=== PATIENT | male | born 1940 | race Caucasian/White ===

== ENCOUNTER → 2017-08-31 09:55 | Outpatient (CLI) | payer MEDICARE, SELFPAY ==
[2017-08-31 10:24] LABS: Blood Urea Nitrogen 23 mg/dL (7-18); Creatinine,Serum 1.02 mg/dL (0.70-1.30); Estimated Glomerular Filt Rate 71 ml/min (>60); GFR (African American) 86 ML/MIN (>60)
--- NOTE | 2017-08-31 10:39 | CT_ITS ---
CT abdomen wo/w con CLINICAL INDICATION: Polycythemia, splenomegaly, ITS.REASON: SPLENAMEGALY,POLYCTHEMIA ORDERING PHYSICIAN: Timo Hancock MD PATIENT AGE: 77 years COMPARISON: None TECHNIQUE: Axial images obtained without and with contrast. Sagittal and coronal reformats. PROCEDURE: Oral Contrast: None IV Contrast: 75 mL's Isovue-370. FINDINGS: Lung base images show scattered areas of fibrosis with centrilobular and paraseptal emphysematous changes. There are scattered isodense densities within the liver measuring up to 9 mm in the left hepatic lobe and may be due to small hepatic cyst. There are scattered calcific densities also in the liver. There are gallstones. No ductal dilatation. Spleen is unremarkable. No evidence of splenomegaly. Adrenal glands have an unremarkable appearance. Pancreatic duct is slightly prominent in the region of the head of the pancreas. On image #37 of the unenhanced and 35 of post enhanced sequences there is a calcification in the region of the head of the pancreas. Could be a stone within the pancreatic duct or subjacent calcification from chronic pancreatitis. MRCP may be of further value if clinically warranted. There are bilateral renal cyst and nonobstructing bilateral renal calculi as stones measuring up to 4 mm in the lower pole on the right and 3 mm in the lower pole on the left. There are bilateral renal cysts measuring up to 5.4 cm in the upper pole on the right and 4.2 cm in the lower pole on the left. There are left parapelvic renal cysts which measure up to 2.7 cm. No hydronephrosis. Unremarkable appendix. No intestinal obstruction or free air. There is diverticulosis of the descending and sigmoid colon. No evidence of diverticulitis. A small umbilical hernia containing fat. There is mild thickening urinary bladder wall nonspecific. Prostate gland is slightly prominent at 4.6 cm. Degenerative changes lumbar spine. IMPRESSION: 1. No evidence of splenomegaly. Small hepatic cyst. 2. Cholelithiasis. 3. There is a small calcific density in the pancreatic head and one at the junction of the head and body could be due to chronic pancreatitis. The calcification in the pancreatic head however is associated with the accessory pancreatic duct and could be related to a small stone within the duct. There is minimal prominence of the pancreatic duct in the body the pancreas. 4. Bilateral nonobstructing renal calculi with bilateral renal cysts. 5. Diverticulosis of the colon with small umbilical hernia.
== END ==
PROVIDERS: Family Provider Internal Medicine Adolescent Medicine; PCP Internal Medicine Adolescent Medicine; Visit Provider Internal Medicine Adolescent Medicine
DX: R16.1 Splenomegaly, not elsewhere classified (principal); D75.1 Secondary polycythemia
CPT/HCPCS: 36415; 74170; 82565; 84520; Q9967

== ENCOUNTER 2017-11-15 15:33 | Observation (INO) ==
--- NOTE | 2017-11-15 16:25 | Consult Report ---
*Admission Date: 11/15/17 *Chief complaint: Abdominal pain *History of present illness: Patient is a pleasant 77-year-old quite talkative white male with history of polycythemia vera and history of coronary artery disease on Plavix. He states that he was in his usual state of health until he had gone to bed yesterday evening and developed upper abdominal pain. He describes it more of a "tenderness". This was in the epigastrium and bilateral subcostal area. He had some associated bloating. He had proceeded to drink some sweet tea and had very cold icy sensation upon doing so. This was followed by extremely dark black stool. Patient states that he ultimately did go to sleep in the [facility] and had presented to his primary care physician's office today. Given his history plan was made for admission for inpatient management and surgical consultation for possible endoscopy. Patient denies any prior known history of ulcers. He does state that he had a normal bowel movement this morning. He, however, still does have the upper abdominal "tenderness". Review of Systems - Constitutional Denies anorexia - Eyes Denies blind spots - ENT Denies abnormal hearing - *Cardiovascular Denies chest pain - *Respiratory Denies shortness of breath - *Gastrointestinal Reports abdominal pain, Reports bloating, Reports change in stools - *Genitourinary Denies difficulty urinating Meds Allergies Allergy/AdvReac Type Severity Reaction Status Date / Time No Known Allergies Allergy Unverified 07/13/17 15:01 Exam Vital signs and Labs for Last 24 Hours: Temp Pulse Resp BP Pulse Ox 97.9 F 84 18 99/56 97 11/15/17 16:13 11/15/17 16:13 11/15/17 16:13 11/15/17 16:13 11/15/17 16:13 I & O for Last 24 hours: Intake & Output 11/13/17 11/14/17 11/15/17 11/16/17 11:59 11:59 11:59 11:59 Weight 156 lb 7 oz - Constitutional no acute distress - *Routine Respiratory Exam Present: CTA bilaterally - *Routine Cardiovascular Exam Present: RRR - *Routine Abdominal Exam Present: soft. Absent: tenderness Assessment and Plan - Assessment and plan all Dx Assessment and Plan for all problems:: Etiology of symptoms are unclear. Given the history of epigastric pain and probable melanic stool I do feel that upper endoscopy would be reasonable. Patient seems to be quite stable at this time and therefore plan tentatively for upper endoscopy tomorrow morning. Likely would be rather hesitant to perform any biopsies given ongoing antiplatelet agents.
[2017-11-15 16:45] LABS: Basophils # 0.1 K/mm3 (0-0.2); Eosinophils # 0.3 K/mm3 (0.0-0.4); Eosinophils % 3.3 % (0.1-12.0); Hematocrit 48.7 % (42.0-52.0); Hemoglobin 15.5 g/dL (14.1-18.0); Lymphocytes # 0.9 K/mm3 (0.7-4.5); Lymphocytes % 12.2 K/mm3 (10-50); Mean Corpuscular HGB Conc 31.8 g/dL (31.8-35.4); Mean Corpuscular Hemoglobin 29.8 pg (27.0-31.2); Mean Corpuscular Volume 93.6 fl (80-94); Mean Platelet Volume 8.6 fl (7.4-10.4); Monocytes # 0.5 K/mm3 (0.1-1.0); Monocytes % 6.9 % (1.7-9.3); Neutrophils # 5.8 K/mm3 (1.8-7.8); Neutrophils % 76.7 % (37.0-80.0); Platelet Count 184 K/mm3 (142-424); White Blood Count 7.6 K/mm3 (4.8-10.8)
[2017-11-15 17:27] LABS: Alanine Aminotransferase 14 U/L (12-78); Albumin Level 3.5 gm/dL (3.4-5.0); Albumin/Globulin Ratio 1.2 (1.1-1.8); Alkaline Phosphatase 77 U/L (46-116); Anion Gap 11.1 mEq/L (5-15); Aspartate Amino Transferase 12 U/L (15-37); Bilirubin,Total 0.5 mg/dL (0.2-1.0); Blood Urea Nitrogen 18 mg/dL (7-18); Calcium 8.9 mg/dL (8.5-10.1); Carbon Dioxide 26 mmol/L (21.0-32.0); Chloride 107 mmol/L (98-107); Globulin 2.9 gm/dl (1.3-3.2); Glucose 88 mg/dL (74-106); Potassium 4.1 mmoL/L (3.5-5.1); Sodium 140 mmol/L (136-145); Total Protein,Serum 6.4 gm/dL (6.4-8.2)
--- NOTE | 2017-11-16 07:37 | Pharmacy Consult Notes ---
[facility] Pharmacy VTE Monitoring - Patient Demographics Admission date: 11/15/17 Report Date: 11/16/17 Time: 07:37 Allergies/Adverse Reactions: Patient Allergies No Known Allergies Allergy (Unverified 07/13/17 15:01) Height: 1.7 m Weight: 70.959 kg - VTE Risk Labs: VTE Related Lab Results Hgb 15.5 g/dL (14.1-18.0) 11/15/17 16:30 Hct 48.7 % (42.0-52.0) 11/15/17 16:30 Plt Count 184 K/mm3 (142-424) 11/15/17 16:30 BUN 18 mg/dL (7-18) 11/15/17 16:30 Creatinine 0.96 mg/dL (0.70-1.30) 11/15/17 16:30 Estimated Creat Clear 64 mL/min (0-300) 11/15/17 16:30 Was VTE Risk Assessment Performed: Yes VTE Score: 1 VTE Risk Level: Very Low Risk - Prophylaxis VTE Prophylaxis Ordered?: Yes Types of VTE Prophylaxis: TEDS Knee High Location of Applied Device: Bilateral Lower Extremeties
--- NOTE | 2017-11-16 07:46 | Progress Note ---
Internal Medicine - PN: Subj *Date: 11/16/17 *Time: 07:45 Interval history: No pain overnight, normal bowel movement. Exam Vital signs and Labs for Last 24 Hours: Temp Pulse Resp BP Pulse Ox 98.2 F 93 H 20 102/55 93 L 11/16/17 07:28 11/16/17 07:28 11/16/17 07:28 11/16/17 07:28 11/16/17 07:28 Laboratory Results - last 24 hr 11/15/17 16:30: WBC 7.6, RBC 5.20, Hgb 15.5, Hct 48.7, MCV 93.6, MCH 29.8, MCHC 31.8, RDW 13.0, Plt Count 184, MPV 8.6, Neut % (Auto) 76.7, Lymph % (Auto) 12.2 , [place] % (Auto) 6.9, Eos % (Auto) 3.3, Baso % (Auto) 1.0, Neut # (Auto) 5.8, Lymph # (Auto) 0.9, [place] # (Auto) 0.5, Eos # (Auto) 0.3, Baso # (Auto) 0.1 11/15/17 16:30: Sodium 140, Potassium 4.1, Chloride 107, Carbon Dioxide 26, Anion Gap 11.1, BUN 18, Creatinine 0.96, Estimated Creat Clear 64, Estimated GFR 76, Est GFR ( Amer) 92, Glucose 88, Calcium 8.9, Total Bilirubin 0.5 , AST 12 L, ALT 14, Alkaline Phosphatase 77, Troponin I < 0.02, Total Protein 6.4, Albumin 3.5, Globulin 2.9, Albumin/Globulin Ratio 1.2 11/15/17 18:50: Troponin I < 0.02 11/15/17 21:39: Troponin I < 0.02 I & O for Last 24 hours: Intake & Output 11/13/17 11/14/17 11/15/17 11/16/17 11:59 11:59 11:59 11:59 Intake Total 1433 / 1433 Output Total 1000 / 1000 Balance 433 / 433 Weight 156 lb 7 oz Narrative: Rate regular, abdomen soft, no tenderness, alert, pleasant, oriented Assessment and Plan (1) Abdominal pain Current visit: Yes Status: Acute Category: Medical Code(s): R10.9 - Unspecified abdominal pain (2) Melena Current visit: Yes Status: Acute Category: Medical Code(s): K92.1 - Melena EGD today. Anticipate discharge of normal findings
[2017-11-16 07:55] LABS: Anion Gap 10.8 mEq/L (5-15); Potassium 3.8 mmoL/L (3.5-5.1)
[2017-11-16 08:00] LABS: Basophils # 0.1 K/mm3 (0-0.2); Basophils % 0.9 % (0.1-2.0); Eosinophils # 0.2 K/mm3 (0.0-0.4); Eosinophils % 3.2 % (0.1-12.0); Hematocrit 45.3 % (42.0-52.0); Hemoglobin 14.5 g/dL (14.1-18.0); Lymphocytes # 0.8 K/mm3 (0.7-4.5); Lymphocytes % 13.8 K/mm3 (10-50); Mean Corpuscular Hemoglobin 29.9 pg (27.0-31.2); Mean Corpuscular Volume 93.4 fl (80-94); Mean Platelet Volume 8.9 fl (7.4-10.4); Monocytes # 0.5 K/mm3 (0.1-1.0); Monocytes % 8.4 % (1.7-9.3); Neutrophils # 4.4 K/mm3 (1.8-7.8); Neutrophils % 73.6 % (37.0-80.0); Platelet Count 153 K/mm3 (142-424); Red Blood Count 4.85 M/mm3 (4.60-6.20)
--- NOTE | 2017-11-16 09:15 | Progress Note ---
[facility] Anesthesia Checklist - Patient Identification Patient Identification: Arm Band - Structural Data Admitted From: Home Planned Operative Procedure/s: egd Consent for Planned Operative Procedure(s) Verified: Yes Verified Documents: Surgical Consent, History and Physical - NPO Status Verified Time NPO: 00:00 - Additional verifications Anesthesia Reactions: No - Airway Assessment C-Spine Mobility Assessed: Yes (mp2) TMJ Mobility Assessed: Yes Dentition: Good Dentition - Neurological Assessment Level of Consciousness: Awake, Alert - Anesthesia Plan Anesthesia Risk discussed: Yes Anesthesia Plan: Verified ASA Class: III Anesthesia Type: MAC [facility] Anesthesia HX I have reviewed the patient's past medical history: Yes Medical History: Reports:: Aneurysm (pt states hx 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 pt states no residual weanesses), Hepatitis (pt states hx Hepatitis (unsure of B or C) acquired from [place]>30 yrs ago), Hyperlipidemia, Hypertension Denies:: Cancer, Diabetes Mellitus Type 1, Diabetes Mellitus Type 2, MRSA Laterality Cases: Bilateral: Arthroscopy Shoulder Other Surgeries: Yes: CABG, Hernia Repair, Open Heart Surgery, Other Amputation: No *Family Hx:: Cancer, Heart Attack, Hyperlipidemia, Hypertension
--- NOTE | 2017-11-16 09:52 | Procedure Note ---
- Procedure: Date: 11/16/17 Procedure Performed:: Esophagogastroduodenoscopy Indications:: Patient is a 77-year-old white male. He states that in the evening of 11/14/17 he had developed some epigastric pain with some associated bloating. He states that he drank some sweet tea and had an extremely cold sensation. This was followed by quite a black stool. He did have a subsequent normal stool but after presenting to his primary care provider the following day he was admitted for inpatient management upper endoscopy. Patient does have a history of polycythemia. Plan was made for upper endoscopy following morning. Performing Provider:: Ronald Jacinto MD Referring Provider:: Timo Hancock MD Sedation:: Propofol Procedure:: Consent was obtained patient was taken to endoscopy procedure room. He was positioned in a lateral decubitus position. Adequate intravenous sedation was achieved with anesthesia titration of propofol. Olympus endoscope was inserted via the oropharynx and advanced through the esophagus. Esophagus appeared unremarkable. Stomach was cannulated and insufflated. Retroflexion revealed a small hiatal hernia. He had some diffuse moderate nonerosive gastritis. Within the second portion of the duodenum there were findings of appreciable erosive duodenitis. However there was a rather large quite deep ulcer which had some old hemorrhagic material but no obvious vessel or adherent clot. Endoscope was able to be advanced beyond this. Distal duodenum was unremarkable. Endoscope was withdrawn into the stomach once again. Stomach was desufflated and the endoscope was withdrawn. Findings:: Small sliding hiatal hernia Diffuse nonerosive gastritis Erosive duodenitis Deep ulceration in second portion of duodenum with hemorrhagic material but no adherent clot or obvious visible vessel Recommendations:: High-dose proton pump inhibitors. I will go ahead and give full liquid diet. Likely plan for continued observation till tomorrow morning. If stable will discharge on high-dose proton pump inhibitor. Plan for repeat upper endoscopy in about 6 weeks. Complications:: None Estimated blood obtained (mL): 0
[2017-11-17 07:51] LABS: Basophils % 0.7 % (0.1-2.0); Eosinophils # 0.2 K/mm3 (0.0-0.4); Eosinophils % 3.7 % (0.1-12.0); Hematocrit 44.6 % (42.0-52.0); Lymphocytes # 0.9 K/mm3 (0.7-4.5); Lymphocytes % 16.1 K/mm3 (10-50); Mean Corpuscular HGB Conc 31.4 g/dL (31.8-35.4); Mean Corpuscular Hemoglobin 29.8 pg (27.0-31.2); Mean Corpuscular Volume 94.8 fl (80-94); Mean Platelet Volume 8.7 fl (7.4-10.4); Monocytes # 0.4 K/mm3 (0.1-1.0); Neutrophils # 3.9 K/mm3 (1.8-7.8); Neutrophils % 71.5 % (37.0-80.0); Platelet Count 144 K/mm3 (142-424); Red Blood Count 4.71 M/mm3 (4.60-6.20); Red Cell Distribution Width 13.1 % (11.5-17.5); White Blood Count 5.4 K/mm3 (4.8-10.8)
--- NOTE | 2017-11-17 07:57 | Discharge Summary ---
General - General Admission date:: 11/15/17 Discharge date: 11/17/17 HPI HPI: Patient is a pleasant 77-year-old quite talkative white male with history of polycythemia and history of coronary artery disease on Plavix. He states that he was in his usual state of health until he had gone to bed yesterday evening and developed upper abdominal pain. He describes it more of a "tenderness". This was in the epigastrium and bilateral subcostal area. He had some associated bloating. He had proceeded to drink some sweet tea and had very cold icy sensation upon doing so. This was followed by extremely dark black stool. Patient states that he ultimately did go to sleep in the [facility] hours and had presented to his primary care physician's office today. Given his history plan was made for admission for inpatient management and surgical consultation for possible endoscopy. Patient denies any prior known history of ulcers. He does state that he had a normal bowel movement this morning. He, however, still does have the upper abdominal "tenderness". Hospital Course Hospital Course: Patient was admitted, hemoglobin was stable, no sign abnormalities were noted. Because of patient's significant history of GI distress and the melanotic stool he was taken for EGD yesterday morning which revealed a very deep duodenal ulcer with no active bleeding. High-dose PPI was recommended, cautious diet was reinstituted and patient did well. This morning patient is doing very nicely. Has had normal stools, no vomiting. No evidence of bleeding. Eating well. Exam is normalized. Patient will be discharged home with high-dose PPI twice daily and close follow- up with surgeon for repeat endoscopy. Objective Vital signs: Temp Pulse Resp BP Pulse Ox 98.5 F 77 20 139/52 94 L 11/17/17 07:47 11/17/17 07:47 11/17/17 07:47 11/17/17 07:47 11/17/17 07:47 Narrative: Alert, pleasant, oriented 3. Lungs have smokers rhonchi as previously, heart rate regular, abdomen without abnormal findings. No edema noted. Results Labs on day of discharge: Labs from last 24 hours 11/16/17 11/16/17 06:05 06:05 WBC 6.0 RBC 4.85 Hgb 14.5 Hct 45.3 MCV 93.4 MCH 29.9 MCHC 32.0 RDW 13.0 Plt Count 153 MPV 8.9 Neut % (Auto) 73.6 Lymph % (Auto) 13.8 [place] % (Auto) 8.4 Eos % (Auto) 3.2 Baso % (Auto) 0.9 Neut # (Auto) 4.4 Lymph # (Auto) 0.8 [place] # (Auto) 0.5 Eos # (Auto) 0.2 Baso # (Auto) 0.1 Sodium 144 Potassium 3.8 Chloride 108 H Carbon Dioxide 29 Anion Gap 10.8 BUN 12 D Creatinine 0.88 Estimated Creat Clear 64 Estimated GFR 84 Est GFR ( Amer) 102 Glucose 62 L D DS: Diagnosis - Discharge Diagnosis (1) Abdominal pain Status: Resolved (2) Melena Status: Resolved (3) Duodenal ulcer Status: Acute Discharge Plan - Patient Discharge Instructions ACTIVITY: Continue current activity DIET: continue same diet - Follow up Plan Follow up with: Ronald Jacinto MD [Staff Physician] - 2 weeks Disposition: Home, Self-[facility] Medications: Home Medications Medication Instructions Recorded Confirmed Type Ascorbic Acid [Vitamin C 500mg 2 tab PO DAILY 11/15/17 11/15/17 History tablet] Aspirin [Aspirin 81mg chewable 81 mg PO DAILY 11/15/17 11/15/17 History tab] Clopidogrel Bisulfate [Plavix] 75 mg PO DAILY 11/15/17 11/15/17 History Lisinopril [Lisinopril 5mg Tablet] 2.5 mg PO DAILY 11/15/17 11/16/17 History Metoprolol Tartrate [Lopressor 12.5 mg PO BID 11/15/17 11/16/17 History 25mg tablet] Simvastatin 80 mg PO DAILY 11/15/17 11/15/17 History Prescriptions/Medication Reconciliation: New Omeprazole [Omeprazole 20mg Tab] 20 mg PO BID #60 tab Continue Metoprolol Tartrate [Lopressor 25mg tablet] 12.5 mg PO BID Aspirin [Aspirin 81mg chewable tab] 81 mg PO DAILY Lisinopril [Lisinopril 5mg Tablet] 2.5 mg PO DAILY Simvastatin 80 mg PO DAILY Ascorbic Acid [Vitamin C 500mg tablet] 2 tab PO DAILY Discontinued Clopidogrel Bisulfate [Plavix] 75 mg PO DAILY
== END 2017-11-17 08:40 | disposition home or self-care (01) ==
LOC: 2ND
PROVIDERS: ADMIT Internal Medicine Adolescent Medicine; ATTEND Internal Medicine Adolescent Medicine
CPT/HCPCS: 36415; 71020; 71046; 80048; 80053; 84484; 85025; 93005; G0378

== ENCOUNTER 2018-08-04 14:00 | Outpatient (CLI) | payer MEDICARE, OTHER, SELFPAY ==
[2018-08-04 13:53] VITALS: BMI 25.5
[2018-08-04 14:17] LABS: Basophils % 0.5 % (0.1-2.0); Eosinophils # 0.4 K/mm3 (0.0-0.4); Eosinophils % 5.3 % (0.1-12.0); Hematocrit 52.8 % (42.0-52.0); Lymphocytes % 14.9 % (10-50); Mean Corpuscular HGB Conc 30.3 g/dL (31.8-35.4); Mean Corpuscular Hemoglobin 26.7 pg (27.0-31.2); Mean Corpuscular Volume 88.1 fl (80-94); Mean Platelet Volume 8.3 fl (7.4-10.4); Monocytes # 0.6 K/mm3 (0.1-1.0); Monocytes % 8.5 % (1.7-9.3); Neutrophils # 4.6 K/mm3 (1.8-7.8); Neutrophils % 70.8 % (37.0-80.0); Platelet Count 163 K/mm3 (142-424); Red Blood Count 5.99 M/mm3 (4.60-6.20); Red Cell Distribution Width 15.6 % (11.5-17.5); White Blood Count 6.6 K/mm3 (4.8-10.8)
[2018-08-04 14:25] LABS: Blood Urea Nitrogen 17 mg/dL (7-18); Creatinine Clearance Estimated 60 mL/min (50-200); Estimated Glomerular Filt Rate 65 ml/min (>60); GFR (African American) 79 ML/MIN (>60)
[2018-08-04 14:35] VITALS: RESP 20
[2018-08-04 14:50] VITALS: BMI 25.5
== END 2018-08-04 14:35 | disposition home or self-care (01) ==
PROVIDERS: Visit Provider Internal Medicine Medical Oncology
DX: D45 Polycythemia vera (principal)
CPT/HCPCS: 36415; 82565; 84520; 85025

== ENCOUNTER → 2018-08-09 13:38 | Outpatient (CLI) | payer MEDICARE, OTHER, SELFPAY ==
--- NOTE | 2018-08-09 14:01 | CT_ITS ---
CT chest w con HISTORY: Pulmonary nodules, smoker, tobacco use ITS.REASON: POLYCYTHEMIA ORDERING PHYSICIAN: Symone Cardenas MD PATIENT AGE: 78 years COMPARISON: None TECHNIQUE: Axial images obtained following the administration of 75 mL of Isovue 370 . Sagittal, and coronal reformatted images are also generated and reviewed. All CT scans at the facility use one or more dose reduction, viz: automated exposure control, ma/kV adjustment per patient size (including targeted exams where dose is matched to indication, i.e. head), or iterative reconstruction technique. FINDINGS: There is been prior median sternotomy with CABG. No evidence of aortic aneurysm or dissection. There is tortuosity of the descending thoracic aorta. There are coronary artery calcifications. No evidence of central pulmonary embolus. No mediastinal or hilar mass or adenopathy. There is a noncalcified 5 mm nodule in the right upper lobe centrally. No lobar consolidation or collapse. Calcified granuloma is present in the left upper lobe. No effusions or infiltrates. Centrilobular and paraseptal emphysema is noted. Pulmonary fibrotic changes are also present Upper abdominal images show cholelithiasis and bilateral renal cyst. There is an indeterminate isodensity in the left hepatic lobe at 9 mm. Central hepatic calcifications are also present and there is an additional 5 mm isodensity in the right upper lobe laterally. No acute bony findings. Destructive process IMPRESSION: 1. Centrilobular and paraseptal emphysema with pulmonary fibrotic changes 2. 5 mm right upper lobe nodule. Recommend 6-12 month follow-up 3. Cholelithiasis and other nonacute findings of the upper abdomen
== END ==
PROVIDERS: PCP Internal Medicine Adolescent Medicine; Visit Provider Internal Medicine Medical Oncology
DX: D75.1 Secondary polycythemia (principal)
CPT/HCPCS: 71260; Q9967

== ENCOUNTER 2018-09-08 14:58 | Outpatient (CLI) | payer MEDICARE, SELFPAY ==
[2018-09-08 15:50] LABS: Basophils # 0.1 K/mm3 (0-0.2); Basophils % 1.5 % (0.1-2.0); Eosinophils # 0.3 K/mm3 (0.0-0.4); Eosinophils % 4.6 % (0.1-12.0); Lymphocytes % 16.7 % (10-50); Mean Corpuscular HGB Conc 29.3 g/dL (31.8-35.4); Mean Corpuscular Hemoglobin 26.9 pg (27.0-31.2); Mean Corpuscular Volume 91.7 fl (80-94); Mean Platelet Volume 8.6 fl (7.4-10.4); Monocytes # 0.7 K/mm3 (0.1-1.0); Monocytes % 10.7 % (1.7-9.3); Neutrophils % 66.5 % (37.0-80.0); Platelet Count 134 K/mm3 (142-424); Red Blood Count 6.32 M/mm3 (4.60-6.20); Red Cell Distribution Width 15.2 % (11.5-17.5)
[2018-09-08 17:15] VITALS: BP 120/64; PULSE 60; RESP 18
== END 2018-09-08 17:15 | disposition home or self-care (01) ==
LOC: LAB 15:04 → INF 16:41
PROVIDERS: Visit Provider Internal Medicine Medical Oncology
DX: D45 Polycythemia vera (principal)
CPT/HCPCS: 36415; 85025

== ENCOUNTER 2018-10-07 13:00 | Outpatient (CLI) | payer MEDICARE, SELFPAY ==
[2018-10-07 13:03] VITALS: BMI 25.5
[2018-10-07 13:33] LABS: Basophils # 0.1 K/mm3 (0-0.2); Eosinophils # 0.4 K/mm3 (0.0-0.4); Eosinophils % 5.9 % (0.1-12.0); Hematocrit 57.1 % (42.0-52.0); Hemoglobin 17.4 g/dL (14.1-18.0); Lymphocytes % 15.9 % (10-50); Mean Corpuscular HGB Conc 30.4 g/dL (31.8-35.4); Mean Corpuscular Hemoglobin 27.4 pg (27.0-31.2); Mean Platelet Volume 8.7 fl (7.4-10.4); Monocytes # 0.5 K/mm3 (0.1-1.0); Monocytes % 8.4 % (1.7-9.3); Neutrophils # 4.3 K/mm3 (1.8-7.8); Neutrophils % 68.8 % (37.0-80.0); Platelet Count 130 K/mm3 (142-424); Red Blood Count 6.35 M/mm3 (4.60-6.20); Red Cell Distribution Width 14.4 % (11.5-17.5); White Blood Count 6.2 K/mm3 (4.8-10.8)
--- NOTE | 2018-10-07 16:29 | PC.NURSE ---
1323 - MARCUS FROM LAB GINA BLOOD FOR CBC AT THIS TIME.
== END 2018-10-07 15:30 | disposition home or self-care (01) ==
LOC: INF 13:01
PROVIDERS: Visit Provider Internal Medicine Medical Oncology
DX: R71.8 Other abnormality of red blood cells (principal)
CPT/HCPCS: 36415; 85025; 99195

== ENCOUNTER → 2018-11-04 13:07 | Outpatient (CLI) | payer MEDICARE, SELFPAY ==
[2018-11-04 13:19] LABS: Basophils # 0.1 K/mm3 (0-0.2); Basophils % 1.5 % (0.1-2.0); Eosinophils # 0.4 K/mm3 (0.0-0.4); Eosinophils % 5.7 % (0.1-12.0); Hematocrit 53.5 % (42.0-52.0); Hemoglobin 16.7 g/dL (14.1-18.0); Lymphocytes # 1.1 K/mm3 (0.7-4.5); Lymphocytes % 17.1 % (10-50); Mean Corpuscular HGB Conc 31.2 g/dL (31.8-35.4); Mean Corpuscular Hemoglobin 27.6 pg (27.0-31.2); Mean Corpuscular Volume 88.7 fl (80-94); Mean Platelet Volume 8.7 fl (7.4-10.4); Monocytes # 0.6 K/mm3 (0.1-1.0); Monocytes % 8.9 % (1.7-9.3); Neutrophils # 4.1 K/mm3 (1.8-7.8); Neutrophils % 66.9 % (37.0-80.0); Platelet Count 175 K/mm3 (142-424); Red Blood Count 6.03 M/mm3 (4.60-6.20); Red Cell Distribution Width 13.9 % (11.5-17.5); White Blood Count 6.2 K/mm3 (4.8-10.8)
== END ==
PROVIDERS: Visit Provider Internal Medicine Medical Oncology
DX: D45 Polycythemia vera (principal)
CPT/HCPCS: 36415; 85025

== ENCOUNTER 2018-12-08 15:14 | Outpatient (CLI) | payer MEDICARE, SELFPAY ==
[2018-12-08 15:30] LABS: Basophils # 0.1 K/mm3 (0-0.2); Basophils % 1.2 % (0.1-2.0); Eosinophils # 0.3 K/mm3 (0.0-0.4); Eosinophils % 4.9 % (0.1-12.0); Hematocrit 55.9 % (42.0-52.0); Hemoglobin 17.3 g/dL (14.1-18.0); Lymphocytes # 1.3 K/mm3 (0.7-4.5); Lymphocytes % 19.7 % (10-50); Mean Corpuscular HGB Conc 30.9 g/dL (31.8-35.4); Mean Corpuscular Hemoglobin 26.9 pg (27.0-31.2); Mean Corpuscular Volume 86.9 fl (80-94); Mean Platelet Volume 8.2 fl (7.4-10.4); Monocytes # 0.5 K/mm3 (0.1-1.0); Monocytes % 8.1 % (1.7-9.3); Neutrophils # 4.2 K/mm3 (1.8-7.8); Neutrophils % 66.1 % (37.0-80.0); Platelet Count 171 K/mm3 (142-424); Red Blood Count 6.43 M/mm3 (4.60-6.20); Red Cell Distribution Width 13.6 % (11.5-17.5); White Blood Count 6.4 K/mm3 (4.8-10.8)
== END 2018-12-08 16:35 | disposition home or self-care (01) ==
LOC: LAB 15:16 → INF 16:00
PROVIDERS: Visit Provider Internal Medicine Medical Oncology
DX: D75.1 Secondary polycythemia (principal)
CPT/HCPCS: 36415; 85025; 99195

== ENCOUNTER → 2019-06-29 12:24 | Outpatient (CLI) | payer MEDICARE, SELFPAY ==
--- NOTE | 2019-06-29 12:29 | CT_ITS ---
PROCEDURE: CT ABDOMEN PELVIS WO CON CLINICAL INDICATION: HEMATURIA COMPARISON: ABDWW CT abdomen wo/w con from 08/31/2017 TECHNIQUE: Axial images obtained with sagittal and coronal reformats. All CT scans at the facility use one or more dose reduction, viz: automated exposure control, ma/kV adjustment per patient size (including targeted exams where dose is matched to indication, i.e. head), or iterative reconstruction technique. FINDINGS: LOWER THORAX: Atelectatic/fibrotic changes are present in the lung bases. Artifact present pacemaker wires. There are scattered hypodensities within the liver which are too small to categorize and may be due to small cysts. Dystrophic calcifications are present in the central aspect of the liver. Multiple gallstones are present within the contracted gallbladder. The spleen and adrenal glands have an unremarkable appearance. There are few punctate calcifications in the pancreas nonspecific and not significantly changed. There are bilateral renal cysts. On the right there is a cyst in the upper pole which measures up to 5 cm with some minimal calcification along the superior margin adjacent to the liver and could even be calcification within the liver itself. There are other smaller cyst on the right and there is a 9 mm irregular stone in the lower pole of the right kidney. No ureteral calculus evident. On the left there is a 4.7 cm cyst in the upper pole. Other smaller cysts are present. There are few scattered left renal calculi measuring up to 5 mm in the lower pole, 3 mm in the mid polar region. No ureteral calculus evident. No hydronephrosis. There are parapelvic renal cysts on the left. There is a small umbilical hernia which contains fat. No evidence of appendicitis or diverticulitis. There is diverticulosis of the sigmoid colon. Increased soft tissue density is present in the left inguinal region and may be due to prior inguinal hernia repair. There is mild thickening of the urinary bladder with nondistention. IMPRESSION: 1. Bilateral nephrolithiasis and bilateral renal cysts. No hydronephrosis. No ureteral calculus. 2. Cholelithiasis. 3. There are scattered hypodensities of the liver which are nonspecific and too small to categorize as well as some dystrophic calcification of the liver. These findings are not significantly changed 4. Other nonacute findings as described above. Dictated by: Que Pruitt MD 06/30/2019 05:38 Electronically signed by Que Pruitt MD in [place] 06/30/2019 10:38
== END ==
PROVIDERS: PCP Internal Medicine Adolescent Medicine; Visit Provider Internal Medicine Adolescent Medicine
DX: R31.9 Hematuria, unspecified (principal)
CPT/HCPCS: 74176

== ENCOUNTER → 2019-06-30 13:06 | Outpatient (CLI) | payer MEDICARE, SELFPAY | PROVIDERS: Visit Provider Urology | DX: R31.9 Hematuria, unspecified (principal); N39.0 Urinary tract infection, site not specified | CPT/HCPCS: 87086; 87088; 87186 ==

== ENCOUNTER 2020-03-27 09:44 | Emergency (ER) | payer MEDICARE, OTHER, SELFPAY ==
[2020-03-27] VITALS (20 sets, daily range): BP systolic 82–109; BP diastolic 46–75; PULSE 66–126; RESP 21–28; TEMP 36.7–39.2; O2SAT 87–96; BMI 26.9
--- NOTE | 2020-03-27 09:48 | [facility].EDGENADL ---
ED Disposition Clinical Impression: Elevated troponin, Septic shock CAP (community acquired pneumonia) Qualifiers: Laterality: right Lung location: lower lobe of lung Qualified Code(s): J18.9 - Pneumonia, unspecified organism Respiratory failure with hypoxia Qualifiers: Chronicity: acute Qualified Code(s): J96.01 - Acute respiratory failure with hypoxia UTI (urinary tract infection) Qualifiers: Urinary tract infection type: site unspecified Hematuria presence: with hematuria Qualified Code(s): N39.0 - Urinary tract infection, site not specified Disposition: Xfer Short-Term Hosp Condition on Discharge: Serious - Critical Care Critical Care Time: Yes Attestation: On , the high probability of a clinically significant, sudden or life threatening deterioration of the following system(s) required my full and direct attention, intervention and personal management. The time I documented below is in addition to time spent performing reported procedures but includes the following listed in this critical care notation. Total Critical Care Time: 35 Vital system(s) involved:: Respiratory Failure, Shock (Septic) My critical care processes included: Assessment & monitoring of V/S, Initial and Re-exams, Data Review/Interpretation, Coordinating Care, Medication Orders and management, Documentation Medical Decision Making - Medical Records Medical records reviewed: Yes: I reviewed the patient's medical records. - [place]aden Inquiry Pt receiving controlled substance: No Vital Signs: 03/27/20 09:44 03/27/20 10:00 03/27/20 10:23 Temperature 100.1 F H Temperature Source Oral Pulse Rate Pulse Rate [Right Radial] 66 125 H 119 H Respiratory Rate 28 H Blood Pressure Blood Pressure [Right Arm] 104/46 L 101/58 L 109/48 L Blood Pressure Mean [Right Arm] 65 72 68 Blood Pressure Source Blood Pressure Source [Right Arm] Automatic Cuff Automatic Cuff Blood Pressure Position Blood Pressure Position [Right Arm] Sitting Sitting 02 Sat by Pulse Oximetry 87 L 90 L 90 L Oxygen Delivery Method Room Air Nasal Cannula Nasal Cannula Oxygen Flow Rate (LPM) 4 4 03/27/20 10:59 03/27/20 11:41 03/27/20 11:55 Temperature Temperature Source Pulse Rate Pulse Rate [Right Radial] 126 H 125 H 120 H Respiratory Rate Blood Pressure Blood Pressure [Right Arm] 103/49 L 95/54 L 97/54 L Blood Pressure Mean [Right Arm] 67 67 68 Blood Pressure Source Blood Pressure Source [Right Arm] Automatic Cuff Automatic Cuff Automatic Cuff Blood Pressure Position Blood Pressure Position [Right Arm] Sitting Sitting Sitting 02 Sat by Pulse Oximetry 92 L 91 L 92 L Oxygen Delivery Method Nasal Cannula Nasal Cannula Nasal Cannula Oxygen Flow Rate (LPM) 4 4 4 03/27/20 12:02 03/27/20 12:33 03/27/20 12:47 Temperature 102.5 F H Temperature Source Oral Pulse Rate Pulse Rate [Right Radial] 120 H 119 H Respiratory Rate Blood Pressure Blood Pressure [Right Arm] 94/66 L 95/62 L Blood Pressure Mean [Right Arm] 75 73 Blood Pressure Source Blood Pressure Source [Right Arm] Automatic Cuff Automatic Cuff Blood Pressure Position Blood Pressure Position [Right Arm] Sitting Sitting 02 Sat by Pulse Oximetry 92 L 91 L Oxygen Delivery Method Nasal Cannula Room Air Oxygen Flow Rate (LPM) 2 03/27/20 13:26 03/27/20 13:30 03/27/20 14:10 Temperature 98.6 F Temperature Source Oral Pulse Rate Pulse Rate [Right Radial] 116 H 107 H Respiratory Rate Blood Pressure Blood Pressure [Right Arm] 82/48 L 97/75 L 93/58 L Blood Pressure Mean [Right Arm] 59 82 69 Blood Pressure Source Blood Pressure Source [Right Arm] Automatic Cuff Automatic Cuff Automatic Cuff Blood Pressure Position Blood Pressure Position [Right Arm] Sitting Sitting 02 Sat by Pulse Oximetry 92 L 92 L Oxygen Delivery Method Nasal Cannula Nasal Cannula Oxygen Flow Rate (LPM) 4 4 03/27/20 14:52 03/27/20 14:59 03/27/20 15:25 [place]
--- NOTE | 2020-03-27 09:49 | XR_ITS ---
PROCEDURE: XR CHEST PORTABLE CLINICAL HISTORY: shortness of breath COMPARISON: CR CXR2 CHEST-AP VIEW ONLY from 07/25/2016 CR CXR2V XR chest 2V from 11/15/[address] chest w con from 08/09/2018 CR XR CHEST 2V from 05/13/2019 FINDINGS: Cardiomegaly without pulmonary venous congestion. There has been a prior CABG. There is a biventricular pacemaker with right atrial lead. There is chronic interstitial changes of the lungs with increased density of the right lower lobe which may be due to some underlying pneumonia. There may be trace bilateral effusions. Postsurgical changes are present in the shoulders. There is fracture of the superior most median sternotomy wire. IMPRESSION: Cardiomegaly with chronic changes with suspected right-sided pneumonia and trace bilateral effusions Dictated by: Que Pruitt MD 03/27/2020 10:24 Que Pruitt MD in [place] 03/27/2020 10:24
--- NOTE | 2020-03-27 09:51 | ECG_ITS ---
APPROVED REPORT Exam: Resting ECG HR:124 bpm ECG Measurements Heart Rate 124 AXES QRSd 150 QRS 210 QT 372 T 25 QTc 534 <Conclusion> Demand pacemaker, interpretation is based on intrinsic rhythm Undetermined rhythm Right bundle branch block, plus right ventricular hypertrophy Possible Lateral infarct, age undetermined Inferior infarct, age undetermined Abnormal ECG Electronically signed by : Timo Hancock, 03/29/2020 06:38:24
--- NOTE | 2020-03-27 10:05 | PC.NURSE ---
RT at bedside
[2020-03-27 10:08] LABS: Basophils % 0.2 % (0.1-2.0); Eosinophils # 0.1 K/mm3 (0.0-0.4); Eosinophils % 0.8 % (0.1-12.0); Hematocrit 51.4 % (42.0-52.0); Hemoglobin 15.9 g/dL (14.1-18.0); Lymphocytes # 0.3 K/mm3 (0.7-4.5); Lymphocytes % 1.8 % (10-50); Mean Corpuscular HGB Conc 30.9 g/dL (31.8-35.4); Mean Corpuscular Hemoglobin 28.2 pg (27.0-31.2); Mean Corpuscular Volume 91.3 fl (80-94); Mean Platelet Volume 9.5 fl (7.4-10.4); Monocytes # 0.8 K/mm3 (0.1-1.0); Monocytes % 4.5 % (1.7-9.3); Neutrophils # 16.6 K/mm3 (1.8-7.8); Neutrophils % 92.7 % (37.0-80.0); Platelet Count 110 K/mm3 (142-424); Red Blood Count 5.63 M/mm3 (4.60-6.20); Red Cell Distribution Width 14.9 % (11.5-17.5); White Blood Count 17.9 K/mm3 (4.8-10.8)
--- NOTE | 2020-03-27 10:09 | PC.NURSE ---
Rad at bedside
[2020-03-27 10:10] LABS: Microscopic, Urine URINE MICROSCOPIC (MICROSCOPIC)
[2020-03-27 10:12] LABS: Chloride 105 mmol/L (98-107); Sodium 141 mmol/L (136-145)
[2020-03-27 10:13] LABS: Appearance,Urine CLOUDY (Clear); Blood, Urine 3+ (Negative); Color,Urine AMBER (Yellow); Glucose,Urine (UA) Negative (Negative); Ketones,Urine TRACE (Negative); Leukocyte Esterase,Urine Negative (Negative); Nitrate,Urine POSITIVE (Negative); Protein,Urine 3+ (Negative); Specific Gravity, Urine 1.025 (1.005-1.030)
[2020-03-27 10:14] LABS: Blood Urea Nitrogen 27 mg/dl (9-20); Creatinine Clearance Estimated 37 mL/min (50-200); Estimated Glomerular Filt Rate 37 ml/min (>60); GFR (African American) 44 ML/MIN (>60)
[2020-03-27 10:15] LABS: Alanine Aminotransferase 35 U/L (12-78); Albumin Level 3.6 g/dl (3.5-5.0); Albumin/Globulin Ratio 1.4 (1.1-1.8); Alkaline Phosphatase 60 U/L (38-126); Aspartate Amino Transferase 54 U/L (17-59); Bilirubin,Total 2.3 mg/dl (0.2-1.3); Calcium 8.7 mg/dl (8.4-10.2); Carbon Dioxide 21 mmol/L (22.0-30.0); Globulin 2.5 g/dL (1.3-3.2); Glucose 128 mg/dl (74-100); Total Protein,Serum 6.1 g/dl (6.3-8.2)
[2020-03-27 10:17] LABS: Bilirubin,Urine Negative (Negative)
[2020-03-27 10:18] LABS: Lactic Acid 5.6 mmol/L (0.7-2.1); MANUAL DIFFERENTIAL MANUAL DIFFERENTIAL (MANUAL DIFF)
[2020-03-27 10:23] LABS: Amorphous Sediment,Urine Trace /lpf; Bacteria,Urine 4+ /lpf; Hyaline Casts,Urine Occasional #/lpf (0); WBC,Urine 20-50 #/hpf (0-3)
[2020-03-27 10:30] LABS: Coronavirus 19 IgG Antibody Negative (Negative); Coronavirus 19 IgM Antibody Negative (Negative)
[2020-03-27 10:32] LABS: Troponin I 8.71 ng/ml (0.00-0.034)
--- NOTE | 2020-03-27 10:32 | PC.NURSE ---
Critical lab values were called to Opal Crews RN
[2020-03-27 10:33] LABS: ABG HCO3 21.1 mmhg (22.0-26.0); ABG Oxygen Saturation 90 % (90-100); ABG PH 7.39 mmol/L (7.35-7.45); ABG PO2 55.7 mmhg (80-100); ABG TCO2 22.2 mmhg (23-27)
[2020-03-27 10:34] LABS: Lymphocytes % 4 % (10-50); Monocytes % 2 % (2-9); Neutrophils % 86 % (42-76); Total Cells Counted 100
[2020-03-27 10:36] LABS: Hypochromasia 1+; Platelet Estimate Slight Decrease
--- NOTE | 2020-03-27 10:36 | PC.NURSE ---
critical troponin reported to dr dempsey. awaiting further orders.
[2020-03-27 10:38] LABS: Allen's Test ACCEPTABLE; Oxygen 4LPM %; Source R RADIAL
[2020-03-27 10:41] LABS: NT Pro Brain Natriuretic Pep. 57100 pg/mL (0-450)
--- NOTE | 2020-03-27 10:49 | PC.NURSE ---
spoke with dr dempsey concerning pt respiratory status, increased bnp and risk for pulmonary edema accompanied with sepsis fluid bolus infusion. dr dempsey states to continue fluid bolus and to monitor closely for pulmonary edema and respiratory distress. pt tachypneic at this time but maintains spo2 and has no further signs of distress thus far.
--- NOTE | 2020-03-27 10:51 | PC.NURSE ---
Dr Wood speaking with Dr Hancock
--- NOTE | 2020-03-27 12:12 | PC.NURSE ---
Called [place] and spoke with Eloisa Singh who is a supervisor transferring and boxing, she faxed the declination of transfer papers to me. Pt's signed them on his behalf and they are being [facility] to [facility] at this time.
--- NOTE | 2020-03-27 13:30 | CA_ITS ---
APPROVED REPORT EXAM: Comprehensive 2D, Doppler, and color-flow Echocardiogram 411 Directory Assistance Operator: Stefanie Stephens, RT(R) Ht: 5 ft 6 in Wt: 167lbs BSA: 1.85 BP: 109/48 mmHg Indications: elevated troponins, pneumonia, septic shock, smoker, edema, HTN, SOB, hyperlipidemia, CAD, CVA, GERD, hepatitis, pacemaker, CABG, stents 2D Dimensions LVOT 1.68 cm (M/F) 1.5-2.5 M-Mode Dimensions LVDd 6.27 cm (3.5-5.7) LVDs 5.02 cm (3.5-5.7) IVSd 1.17 cm (0.6-1.1) PWd 0.84 cm (0.6-1.1) EF (Teich) 40.10% FS 19.90% EDV (Teich) 199.00 mL ESV (Teich) 119.30 mL LV Diastology E/A Ratio 2.18 Mitral Valve MV A Velocity 48.00 (40-130 cm/s) Left Ventricle Left atrium is moderately enlarged, left ventricle is mildly dilated, there is reduced left ventricular systolic function, visually estimated ejection fraction approximately 30%, there is marked hypokinesis involving the inferior, inferior basal wall, there is abnormal septal motion. Diastolic parameters are inconclusive. Right Ventricle Right atrium and right ventricular normal size and contractility, there is an AICD lead seen in the right ventricle. Aortic Valve Aortic valve is thickened and calcified leaflet continue to display good mobility, there is no aortic stenosis or aortic insufficiency. Mitral Valve Mitral valve leaflets are minimally thickened, there is no mitral stenosis, there is moderate to severe mitral regurgitation. Tricuspid Valve Tricuspid valve is grossly normal, there is moderate tricuspid regurgitation. Tricuspid regurgitation jet velocity is inadequate for calculation of the right ventricular systolic pressure. Pulmonic Valve Pulmonic valve is poorly visualized. Great Vessels Aortic root is normal size. Pericardium No significant pericardial effusion noted. Conclusion 1. Moderately enlarged left atrium, mildly dilated left ventricle, visually estimated ejection fraction 30% with segmental wall motion abnormality described above, diastolic parameters are inconclusive. 2. Moderate to severe mitral and moderate tricuspid regurgitation. 3. No significant pericardial effusion noted. Electronically signed by : Angus Hardy, 03/28/2020 15:11:52
--- NOTE | 2020-03-27 13:39 | PC.NURSE ---
notified dr dempsey of patient declining status, tachypnea with rate of 30-32 per minute, sao2 90% on [id number], and sbp of 83. dr dempsey consults with dr franks at this time. new orders received. see sep. will monitor closely.
--- NOTE | 2020-03-27 13:50 | PC.NURSE ---
spoke with [facility] concerning possible need for higher level of care do to patient declining status. me to check on [facility] beds and will return call.
[2020-03-27 14:02] LABS: Reflex Lactic Add Lactic Reflex
--- NOTE | 2020-03-27 14:16 | PC.NURSE ---
dr dempsey consulting with dr franks once again concerning echocardiagram findings. [facility]. pt tolerating levophed gtt well. see sep. bp 95/61, hr 109. continue to monitor closely.
--- NOTE | 2020-03-27 14:22 | PC.NURSE ---
jarrett hurtado speaking with [facility] at this time.
[2020-03-27 14:27] LABS: Troponin I 8.79 ng/ml (0.00-0.034)
--- NOTE | 2020-03-27 14:27 | PC.NURSE ---
Critical troponin called and MD aware
--- NOTE | 2020-03-27 14:35 | PC.NURSE ---
dr dempsey [facility]ults with [facility] and [facility] bed placement pending covid rapid results per [facility] protocol. attempted to receive ok to collect swab from bhavani with infection control and unable to get in contact with her. shalonda, melt house supervisor gives consent to collect and run test.
--- NOTE | 2020-03-27 14:53 | PC.NURSE ---
Lab at bedside collecting covid test
[2020-03-27 15:04] LABS: Lactic Acid Follow Up (RFLX 1) 1.9 mmol/L (0.7-2.1)
--- NOTE | 2020-03-27 16:32 | PC.NURSE ---
Per Denisa in lab pt's covid swab still has approx 57 minutes left to run.
[2020-03-27 16:45] LABS: Troponin I 8.63 ng/ml (0.00-0.034)
--- NOTE | 2020-03-27 16:45 | PC.NURSE ---
3rd critical troponin reported to dr dempsey.
--- NOTE | 2020-03-27 18:09 | PC.NURSE ---
Report called to [facility] at [place]
== END 2020-03-27 19:10 | disposition short-term general hospital (02) ==
LOC: ER 10:06 → 2ND 12:44
PROVIDERS: Emergency Provider Emergency Medicine; PCP Internal Medicine Adolescent Medicine
DX: J18.9 Pneumonia, unspecified organism (principal); J96.01 Acute respiratory failure with hypoxia; N39.0 Urinary tract infection, site not specified; Z03.818 Encounter for observation for suspected exposure to other biological agents ruled out; Z95.0 Presence of cardiac pacemaker; Z95.1 Presence of aortocoronary bypass graft; I25.10 Atherosclerotic heart disease of native coronary artery without angina pectoris; I10 Essential (primary) hypertension; E78.5 Hyperlipidemia, unspecified; K21.9 Gastro-esophageal reflux disease without esophagitis; F17.210 Nicotine dependence, cigarettes, uncomplicated
CPT/HCPCS: 36415; 71045; 80053; 81001; 82803; 83605; 83880; 84484; 85007; 85025; 86328; 87040; 87077; 87086; 87186; 93005; 93306; 96365; 96366; 96367; 96375; 99285; J0456; U0003

== ENCOUNTER → 2020-04-18 12:17 | Outpatient (CLI) | payer MEDICARE, OTHER, SELFPAY ==
[2020-04-18 13:11] LABS: Basophils # 0.1 K/mm3 (0-0.2); Basophils % 1.6 % (0.1-2.0); Eosinophils # 0.1 K/mm3 (0.0-0.4); Eosinophils % 2.6 % (0.1-12.0); Hematocrit 46.4 % (42.0-52.0); Hemoglobin 13.6 g/dL (14.1-18.0); Lymphocytes # 0.9 K/mm3 (0.7-4.5); Mean Corpuscular HGB Conc 29.4 g/dL (31.8-35.4); Mean Corpuscular Hemoglobin 27.9 pg (27.0-31.2); Mean Corpuscular Volume 95.1 fl (80-94); Mean Platelet Volume 10.5 fl (7.4-10.4); Monocytes # 0.4 K/mm3 (0.1-1.0); Monocytes % 8.8 % (1.7-9.3); Neutrophils # 3.1 K/mm3 (1.8-7.8); Platelet Count 83 K/mm3 (142-424); Red Blood Count 4.87 M/mm3 (4.60-6.20); Red Cell Distribution Width 15.7 % (11.5-17.5); White Blood Count 4.6 K/mm3 (4.8-10.8)
[2020-04-18 14:25] LABS: Alanine Aminotransferase 8 U/L (12-78); Albumin Level 3.3 g/dl (3.5-5.0); Albumin/Globulin Ratio 1.4 (1.1-1.8); Alkaline Phosphatase 85 U/L (38-126); Anion Gap 6.9 mEq/L (5-15); Aspartate Amino Transferase 23 U/L (17-59); Bilirubin,Total 0.9 mg/dl (0.2-1.3); Blood Urea Nitrogen 34 mg/dl (9-20); Calcium 9.1 mg/dl (8.4-10.2); Carbon Dioxide 38 mmol/L (22.0-30.0); Chloride 103 mmol/L (98-107); Estimated Glomerular Filt Rate 72 ml/min (>60); GFR (African American) 88 ML/MIN (>60); Globulin 2.3 g/dL (1.3-3.2); Glucose 100 mg/dl (74-100); Magnesium 1.7 mg/dl (1.6-2.3); Potassium 3.9 mmoL/L (3.5-5.1); Sodium 144 mmol/L (136-145); Total Protein,Serum 5.6 g/dl (6.3-8.2)
== END ==
PROVIDERS: Visit Provider Internal Medicine Adolescent Medicine
DX: R60.1 Generalized edema (principal)
CPT/HCPCS: 36415; 80053; 83735; 84443; 85025

== ENCOUNTER 2020-04-30 18:42 | Emergency (ER) | payer MEDICARE, OTHER, SELFPAY ==
[2020-04-30 18:43] VITALS: BP 104/64; PULSE 85; RESP 19; TEMP 36.3; O2SAT 100; BMI 25.3
--- NOTE | 2020-04-30 19:09 | CT_ITS ---
PROCEDURE: CT HEAD/BRAIN WO CON CLINICAL INDICATION: pain Head injury with headache/pain, contusion, abrasion or hematoma COMPARISON: CT HDWO CT HEAD W/O CONTRAST from 07/25/2016 TECHNIQUE: Axial images obtained. All CT scans at the facility use one or more dose reduction, viz: automated exposure control, ma/kV adjustment per patient size (including targeted exams where dose is matched to indication, i.e. head), or iterative reconstruction technique. FINDINGS: No midline shift, mass effect, intracranial hemorrhage, hydrocephalus, or extra-axial fluid collection is evident. Artifact is present from the right sided aneurysm coil in the parasellar region. There are encephalomalacia changes in the left frontal parietal junction. There is generalized atrophy with hypoattenuation of the periventricular white matter consistent with microangiopathic changes. The calvarium has an unremarkable appearance. Chronic partial opacification of the right mastoid air cells. No sinus air-fluid level. IMPRESSION: No acute intracranial finding Dictated by: Que Pruitt MD 05/01/2020 05:37 Que Pruitt MD in [place] 05/01/2020 05:37
--- NOTE | 2020-04-30 19:09 | XR_ITS ---
PROCEDURE: XR PELVIS 1-2V CLINICAL INDICATION: fall Posttraumatic pain COMPARISON: No exams were available for comparison TECHNIQUE: XR Pelvis AP View FINDINGS: No fracture or dislocation is evident. Minimal osteoarthritic changes noted of the hips No lytic or blastic change. IMPRESSION: No acute findings. Dictated by: Que Pruitt MD 05/01/2020 05:27 Que Pruitt MD in [place] 05/01/2020 05:27
--- NOTE | 2020-04-30 19:09 | XR_ITS ---
PROCEDURE: XR RIBS LT MIN 3V W CXR1V CLINICAL INDICATION: pain Left rib pain following injury COMPARISON: CR CXR2V XR chest 2V from 11/15/[address] chest w con from 08/09/2018 CR XR CHEST 2V from 05/13/2019 CR XR CHEST PORTABLE from 03/27/2020 FINDINGS: There is cardiomegaly with prominence of the interstitium. A biventricular pacemaker with right atrial lead is present from left subclavian approach. There is fracture of the superior most median sternotomy wire not significantly changed. Increased markings are present in both lower lobes consistent with atelectatic change with small bilateral effusions. Status post bilateral shoulder surgery with anchor screws in place. There is a nondisplaced fracture of the left 5th rib, minimally offset fracture left 6th and 7th ribs laterally. There may also be an old left 7th rib fracture anterior laterally. No evidence of pneumothorax.. IMPRESSION: 1. Left 5th 6th and 7th rib fractures. 2. Cardiomegaly with chronic interstitial changes and bibasilar atelectasis with trace effusions Dictated by: Que Pruitt MD 05/01/2020 05:32 Que Pruitt MD in [place] 05/01/2020 05:32
--- NOTE | 2020-04-30 19:09 | CT_ITS ---
PROCEDURE: CT CERVICAL SPINE WO CON CLINICAL INDICATION: pain Neck injury with pain, contusion/abrasion or hematoma, cervical sprain/strain the COMPARISON: CT CSWO CT CERVICAL SPINE W/O CONT from 05/11/2015 CR XR RIBS LT MIN 3V W CXR1V from 04/30/2020 TECHNIQUE: Axial images obtained with sagittal and coronal reformats. All CT scans at the facility use one or more dose reduction, viz: automated exposure control, ma/kV adjustment per patient size (including targeted exams where dose is matched to indication, i.e. head), or iterative reconstruction technique. Axial spiral CT scanning performed of the cervical spine beginning at the base of the skull and continuing to the upper T-spine. 3-D multiplanar reconstruction with 3-D manipulation of volumetric data set in image rendering was completed by the radiologist and/or technologist with the supervision of the radiologist on independent workstation. FINDINGS: Multilevel cervical spondylosis is present. No acute fracture or dislocation. C2-C3: Degenerative disc disease. Left-sided foraminal narrowing from facet hypertrophy. C3-C4: Degenerative disc disease. 3 mm retrolisthesis of C3 with severe degenerative disc disease and canal stenosis of 8 mm with bilateral foraminal narrowing left greater than right. C4-C5: Degenerative disc disease. 2 mm retrolisthesis of C4 with bilateral foraminal narrowing and canal stenosis of 10 mm C5-C6: Degenerate disc disease with bilateral foraminal narrowing C6-C7: Degenerative disc disease with bilateral foraminal narrowing. C7-T1: Degenerative disc disease Moderate-sized left effusion in the lung apex with interstitial changes and centrilobular emphysema. IMPRESSION: 1. No acute fracture. 2. Multilevel cervical spondylosis. 3. Left-sided effusion with centrilobular emphysema Dictated by: Que Pruitt MD 05/01/2020 05:43 Que Pruitt MD in [place] 05/01/2020 05:43
--- NOTE | 2020-04-30 19:16 | HMH.EDFALL ---
ED Disposition Clinical Impression: Sprain of ribs, initial encounter Accidental fall Qualifiers: Encounter type: initial encounter Qualified Code(s): W19.XXXA - Unspecified fall, initial encounter Disposition: Still a Patient Condition on Discharge: Good Referrals: Timo Hancock MD [Primary Care Provider] - - Critical Care Critical Care Time: No Attestation: On 04/30/20, the high probability of a clinically significant, sudden or life threatening deterioration of the following system(s) required my full and direct attention, intervention and personal management. The time I documented below is in addition to time spent performing reported procedures but includes the following listed in this critical care notation. Medical Decision Making - Medical Records Medical records reviewed: Yes: I reviewed the patient's medical records. - Caden Inquiry Pt receiving controlled substance: Yes Caden was queried for this patient: No Reason not queried -: Emergent pt cond-no time Risks and benefits of using a controlled substance: were discussed with pt by me Vital Signs: 04/30/20 18:43 Temperature 97.4 F L Temperature Source Oral Pulse Rate [Left Radial] 85 Respiratory Rate 19 Blood Pressure [Right Arm] 104/64 L Blood Pressure Mean [Right Arm] 77 Blood Pressure Source [Right Arm] Automatic Cuff Blood Pressure Position [Right Arm] Sitting 02 Sat by Pulse Oximetry 100 Oxygen Delivery Method Room Air Orders (Tests/Meds): ED MEDICATIONS Discontinued Medications Generic Name Dose Route Start Last Admin Trade Name Freq PRN Reason Stop Dose Admin Hydrocodone Bitart/Acetaminophen 1 tab 04/30/20 19:12 Hydrocodone/Apap 5/325 Mg Tablet PO 04/30/20 19:13 ONCE ONE ORDERS Category Date Time Status CT cervical spine wo con Stat Cat Scan 04/30/20 19:[address] head/brain wo con Stat Cat Scan 04/30/20 19:09 Taken XR pelvis 1-2V Stat Exams 04/30/20 19:09 Ordered XR ribs LT min 3V w CXR1V Stat Exams 04/30/20 19:09 Ordered - Reevaluation(s) Time: 19:38 Reevaluation #1: On reevaluation, patient is feeling better. Repeat exam is improved. Pain is improved. Patient was signed out to oncoming emergency physician pending radiology studies. Medical Decision Narrative: 79-year-old male presented to the emergency department after an accidental fall. No loss of consciousness. Patient meets imaging criteria for the head and cervical spine. Work-up initiated. Fall HPI - General Chief Complaint: Fall Stated Complaint: AO 1006@1700 fell down 5 steps L side ribs Time Seen by Provider: 04/30/20 18:50 Mode of Arrival: Wheelchair Limitations: No Limitations Description of Symptoms (Recalled from ER Triage Doc. by RN): c/o left rib pain after a fall around noon today. Some bruising noted on left ribs - History of Present Illness HPI Narrative: 79-year-old male presenting to the emergency department with a fall. Patient had accidental fall about 3 hours ago. He slipped while he was walking down the stairs. Patient fell on the left side of his ribs and also hit his head. Patient is only complaining of some left-sided rib pain at this time. Is it is dull in nature. Located over his lateral ribs. Worse when he tries to move his arm or bend using the ribs on his left side. Patient does take aspirin and Plavix. He is not endorsing any headache or change in vision. No focal weakness. He denies any abdominal pain or vomiting. No difficulty breathing, cough or hemoptysis. Denies any other extremity pain. Patient is up-to-date on immunizations. - Related Data Home Medications Medication Instructions Recorded Confirmed Aspirin [Aspirin 81mg chewable 81 mg PO DAILY 11/15/17 03/27/20 tab] Metoprolol Tartrate [Lopressor 12.5 mg PO BID 11/15/17 03/27/20 25mg tablet] Simvastatin 40 mg PO DAILY 11/15/17 03/27/20 lisinopriL [Lisinopril 5mg 2.5 mg PO DAILY 11/15/17 03/27/20 Tablet*
[2020-04-30 20:23] VITALS: BP 105/67; PULSE 95; RESP 16; TEMP 36.7; O2SAT 94
== END 2020-04-30 20:25 | disposition still patient (30) ==
PROVIDERS: Emergency Provider Emergency Medicine; PCP Internal Medicine Adolescent Medicine
DX: S22.42XA Multiple fractures of ribs, left side, initial encounter for closed fracture (principal); W10.9XXA Fall (on) (from) unspecified stairs and steps, initial encounter; Y92.019 Unspecified place in single-family (private) house as the place of occurrence of the external cause; I25.10 Atherosclerotic heart disease of native coronary artery without angina pectoris; I10 Essential (primary) hypertension; K21.9 Gastro-esophageal reflux disease without esophagitis; Z95.0 Presence of cardiac pacemaker; Z95.1 Presence of aortocoronary bypass graft; E78.5 Hyperlipidemia, unspecified; F17.210 Nicotine dependence, cigarettes, uncomplicated; Z79.899 Other long term (current) drug therapy
CPT/HCPCS: 70450; 71101; 72125; 72170; 99282

== ENCOUNTER 2020-05-03 10:43 | Emergency (ER) | payer MEDICARE, OTHER, SELFPAY ==
[2020-05-03 10:43] VITALS: BMI 27.3
--- NOTE | 2020-05-03 10:43 | PC.NURSE ---
PT TO ED PER [facility] HX OBTAINED FROM SPOUSE PT FELL OUT OF BED FOUND BY LARGE AMT OF EMESIS WAS NOTED. PT FELL 2 DAYS AGO [facility] AND DX WITH FX RIBS. PT FOUND UNCONSCIOUS APENIC IN PEA. PT WAS GIVEN 1 EPI ENROUTE. PT NOTED TO HAVE COPIOUS VOMIT ON FACE.
--- NOTE | 2020-05-03 10:43 | PC.NURSE ---
PT ADMITS APNEIC WITH NO PULSE. PEA.
--- NOTE | 2020-05-03 10:46 | PC.NURSE ---
HR ASYSTOLE. CODE CALLED BY DR SANTIAGO. TOD [id number]
--- NOTE | 2020-05-03 10:46 | PC.NURSE ---
PER EMS CPR WAS INITIATED BY [id number]
--- NOTE | 2020-05-03 10:56 | HMH.EDGENADL ---
ED Disposition Clinical Impression: Cardiac arrest Disposition: Condition on Discharge: - Critical Care Critical Care Time: No Attestation: On , the high probability of a clinically significant, sudden or life threatening deterioration of the following system(s) required my full and direct attention, intervention and personal management. The time I documented below is in addition to time spent performing reported procedures but includes the following listed in this critical care notation. Probable Cause of : Cardiac arrest Medical Decision Making - Caden Inquiry Pt receiving controlled substance: No - Physician Consults Physician Consulted: Kale Hancock Time: 11:43 Reason -: Pt condition Comment/Response: Notified of Medical Decision Narrative: Pulseless and apneic on arrival. speech and language specialist shows electronic pacemaker spikes without any evidence of capture, consistent with asystole. Greater than 30 minutes cardiac arrest without pulse. Further resuscitation efforts not indicated. Patient pronounced . General Adult HPI - General Stated complaint: code Time Seen by Provider: 05/03/20 10:56 - History of Present Illness HPI narrative: Brought in by ambulance in cardiac arrest. EMS reports that patient reportedly fell or slipped off of his bed and was found between bed and wall and had been vomiting. Upon arrival the patient was pulseless with copious vomitus at the scene. They report that initial rhythm was PEA, electronic pacemaker with some electrical evidence of capture but no pulse. He had an oral airway placed and received ventilations by bag valve mask. He had an IV started and was given epinephrine. He did not regain a pulse during transport. He has been getting CPR and has been pulseless for over 30 minutes. - Related Data Home Medications Medication Instructions Recorded Confirmed Aspirin [Aspirin 81mg chewable 81 mg PO DAILY 11/15/17 03/27/20 tab] Metoprolol Tartrate [Lopressor 12.5 mg PO BID 11/15/17 03/27/20 25mg tablet] Simvastatin 40 mg PO DAILY 11/15/17 03/27/20 lisinopriL [Lisinopril 5mg 2.5 mg PO DAILY 11/15/17 03/27/20 Tablet] Clopidogrel Bisulfate [Plavix 75mg 75 mg PO DAILY 03/27/20 03/27/20 Tab] Cyanocobalamin (Vitamin B-12) 1,000 mcg PO DAILY 03/27/20 03/27/20 [Vitamin B-12] Omeprazole [Omeprazole 20mg 20 mg PO DAILY 03/27/20 03/27/20 Capsule] Primidone 50 mg PO DAILY 03/27/20 03/27/20 Allergies Allergy/AdvReac Type Severity Reaction Status Date / Time No Known Allergies Allergy Verified 03/27/20 09:48 [facility] History - Hepatitis A Screen Attestation statement:: This patient has been screened for Hepatitis A risk factors. I have reviewed the patient's past medical history: No Medical History: Reports:: Aneurysm, Coronary Artery Disease, Cerebrovascular Accident, Gastroesophageal Reflux Disease(GERD), Hepatitis, Hyperlipidemia, Hypertension, Internal Pacemaker Denies:: Cancer, Diabetes Mellitus Type 1, Diabetes Mellitus Type 2, MRSA Laterality Cases: Bilateral: Arthroscopy Shoulder Other Surgeries: Yes: CABG, Coronary Stent (x3), Hernia Repair, Open Heart Surgery, Pacemaker, Other Amputation: No Fractures: Yes Comment: Right foot surgery - Social History Smoking Status: Current every day smoker Tobacco Type: cigarettes # Packs/Day (cigarettes): 1 Alcohol Intake: never Substance Use Type: denies use Occupational Status: retired Housing: house Household Members: spouse Family Hx:: Cancer, Heart Attack, Hyperlipidemia, Hypertension ROS Obtained: Yes unobtainable due to mental status Physical Exam - General General appearance: other Comment: Apneic, pulseless, unresponsive, cyanotic. Copious vomitus present on his face and in his pharynx. Oral airway in place. Pupils are fixed and dilated. Distal extremities are cool. - Eye Eye exam: Present: other (Pupils fixed and dilate
--- NOTE | 2020-05-03 11:05 | PC.NURSE ---
ALL NOTIFIED OF PT'S . SPOKE WITH RAVINDER STATES SHE WILL CALL BACK IF POSSIBLE DONATION
--- NOTE | 2020-05-03 11:22 | PC.NURSE ---
FAMILY AT BEDSIDE. PT'S WITH YELLOW RING WITH BLACK STONE 2ND YELLOW RING REMOVED AND BOTH RINGS GIVEN TO .
--- NOTE | 2020-05-03 11:43 | PC.NURSE ---
Dr Wood speaking with Dr Henley advising of pt expiring.
[2020-05-03 13:38] VITALS: BP 0/0; PULSE 0; RESP 0; TEMP -17.7; TEMP 0; O2SAT 0
== END 2020-05-03 13:40 | disposition expired ==
PROVIDERS: Emergency Provider Emergency Medicine
DX: I46.9 Cardiac arrest, cause unspecified (principal); I10 Essential (primary) hypertension; I25.10 Atherosclerotic heart disease of native coronary artery without angina pectoris; E78.5 Hyperlipidemia, unspecified; K21.9 Gastro-esophageal reflux disease without esophagitis; Z95.0 Presence of cardiac pacemaker; F17.210 Nicotine dependence, cigarettes, uncomplicated
CPT/HCPCS: 99281